=== PATIENT | male | born 1950 | race Caucasian/White ===

== ENCOUNTER → 2017-01-28 | Outpatient (CLI) | payer MEDICARE ==
--- NOTE | 2017-01-28 16:25 | RAD ---
EXAM: Left lower extremity venous Doppler. HISTORY: Left lower extremity pain/swelling. COMPARISON: None. FINDINGS: Grayscale and Doppler analysis of the left lower extremity deep venous system was performed with graded compression and augmentation. The common femoral, greater saphenous, superficial femoral, popliteal and calf veins were assessed. There is no evidence of deep venous thrombosis. Subcutaneous edema is noted. IMPRESSION: 1. No evidence of deep venous thrombosis.
== END | disposition home or self-care (01) ==
LOC: US 15:52
PROVIDERS: ATTEND Physician Assistant Medical
DX: D45 Polycythemia vera (principal)
CPT/HCPCS: 93971

== ENCOUNTER → 2017-10-17 | Outpatient (CLI) | payer MEDICARE ==
--- NOTE | 2017-10-17 09:56 | KCIC ---
EXAM: Cervical spine, 5 views; lumbar spine, 5 views. HISTORY: Paresthesia. COMPARISON: None. FINDINGS: Cervical spine: Frontal, lateral, bilateral oblique, odontoid and swimmer's views of the cervical spine are obtained. There is degenerative endplate remodeling with disc space narrowing and anterior osteophytosis predominantly at C5-C6 and C6-C7. There is facet and uncovertebral arthropathy at all levels. There is calcified plaque within the carotid bifurcations. No fracture is seen. Lumbar spine: Frontal, lateral, bilateral oblique and coned sacral views lumbar spine are obtained. There is grade 1 anterolisthesis of L3 on L4. There is slight retrolisthesis of L5 on S1, and to a lesser extent, L4 and L5. There is degenerative endplate remodeling at all levels. There is a mild anterior wedge compression fracture of T11. This is chronic in appearance. There is endplate remodeling with disc space narrowing and facet arthropathy predominantly at L5-S1. There is atherosclerotic plaque within a suspected ectatic abdominal aorta. IMPRESSION: 1. Multilevel degenerative change within the cervical spine, predominantly at C5-C6 and C6-C7. 2. Multilevel degenerative change within the lumbar spine, predominantly at L5-S1. 3. Grade 1 anterolisthesis of L3 on L4 and slight retrolisthesis of L5 on S1 and L4 and L5. 4. Mild chronic appearing T11 compression fracture. Electronically signed by: Shea Malhotra MD (10/17/2017 9:53 AM) [email or web address]
== END | disposition home or self-care (01) ==
LOC: KCIC 09:06
PROVIDERS: ATTEND Physician Assistant Medical
DX: M43.16 Spondylolisthesis, lumbar region (principal); M48.54XA Collapsed vertebra, not elsewhere classified, thoracic region, initial encounter for fracture; M47.892 Other spondylosis, cervical region; M47.896 Other spondylosis, lumbar region; R20.2 Paresthesia of skin
CPT/HCPCS: 72050; 72110

== ENCOUNTER → 2017-10-24 | Outpatient (CLI) | payer MEDICARE ==
--- NOTE | 2017-10-24 17:27 | KCIC ---
MRI of the cervical spine without contrast 10/24/2017 CLINICAL HISTORY: Bilateral arm numbness and hand paresthesias for one year. TECHNIQUE: Unenhanced T1-weighted, T2-weighted and inversion recovery sagittal and gradient echo and T2-weighted axial images of the cervical spine were obtained. FINDINGS: Minimal lateral curvature of the cervical spine is seen convex to the right. There is straightening of the normal cervical lordosis. Degenerative signal changes are seen involving all of the disks of the cervical spine. Loss of height of the C5-6 and C6-7 discs is noted. Degenerative signal changes are seen within the marrow surrounding these discs. No area of abnormal signal intensity is seen involving the cervical spinal cord. At the C2-3 disc space there is a mild generalized disc bulge. Degenerative changes are seen involving the uncovertebral and facet joints, left greater than right. These findings when combined do not result in significant central spinal canal stenosis. Mild left neural foraminal stenosis is seen. The right neural foramen is patent. At the C3-4 disc space there is a mild generalized disc bulge. Degenerative changes are seen involving the uncovertebral and facet joints, left greater than right. These findings do not result in significant central spinal canal stenosis. Mild left neural foraminal stenosis is seen. The right neural foramen is patent. At the C4-5 disc spaces there are mild generalized disc bulge. Degenerative changes are seen involving the uncovertebral and facet joints bilaterally. These findings when combined do not result in significant central spinal canal or neural foraminal stenosis. At the C5-6 disc space there is a moderate generalized disc bulge. Degenerative changes are seen involving the uncovertebral and facet joints, right greater than left. These findings efface the anterior CSF resulting in mild central spinal canal stenosis without evidence of cord impingement. Mild to moderate right greater than left neural foraminal stenosis is seen. At the C6-7 disc space there is a mild generalized disc bulge. Degenerative changes are seen involving the uncovertebral and facet joints, left greater than right. These findings when combined do not result in significant central spinal canal stenosis. Very mild left neural foraminal stenosis is seen. The right neural foramen is patent. At the C7-T1 disc space there is a moderate generalized disc bulge. Degenerative changes are seen involving the facet joints bilaterally. These findings do not result in significant central spinal canal stenosis. Mild bilateral neural foraminal stenosis is seen. IMPRESSION: Degenerative changes are seen throughout the cervical spine. These findings result in mild central spinal canal stenosis at C5-6 without evidence of cord impingement. Multilevel neural foraminal stenosis is seen as outlined above. Electronically signed by: Naeem Davenport MD (10/24/2017 5:23 PM) [email or web address]
--- NOTE | 2017-10-25 08:32 | KCIC ---
MRI of the lumbar spine without contrast 10/24/2017 CLINICAL HISTORY: Chronic low back pain for one year. TECHNIQUE: Unenhanced T1-weighted, T2-weighted and inversion recovery sagittal and T1-weighted and T2-weighted axial images of the lumbar spine were obtained. FINDINGS: Comparison is made to radiograph the lumbar spine dated 10/17/2017. Minimal S-shaped curvature of the thoracolumbar spine is seen. Degenerative signal changes are seen involving all of the disks of the lumbar spine. Very mild anterolisthesis of L3 in relation to L4 is noted. Degenerative signal changes are seen within the marrow surrounding all the disks of the lumbar spine. Loss of height of the L5-S1 disc is seen. The conus medullaris is normal in position and signal characteristics. Rounded high signal intensity lesions are seen involving both kidneys which measure 7 mm to 1.3 cm in size and T2-weighted images. These likely represent simple cysts. At the T12-L1 disc space there is a mild generalized disc bulge. Superimposed on this disc bulge is a right paracentral focal disc protrusion. This measures 3 mm in AP diameter. Degenerative changes are seen involving the facet joints bilaterally. These findings do not result in significant central spinal canal or neural foraminal stenosis. At the L1-2 disc space there is a mild to moderate generalized disc bulge. This is eccentric to the left. Degenerative changes are seen involving the facet joints bilaterally. There is mild to moderate ligamentum flavum hypertrophy bilaterally. There is prominence of the posterior epidural fat. These findings when combined result in mild to moderate left greater than right central spinal canal stenosis. No neural foraminal stenosis is seen. At the L2-3 disc space there is a mild to moderate generalized disc bulge. This is eccentric to the left. Degenerative changes are seen involving the facet joints bilaterally. There is mild ligamentum flavum hypertrophy bilaterally. There is prominence of the posterior epidural fat. These findings when combined result in mild to moderate central spinal canal stenosis. Mild left neural foraminal stenosis is seen. The right neural foramen is patent. At the L3-4 disc space there is a moderate to large generalized disc bulge. Degenerative changes are seen involving the facet joints bilaterally. There is moderate ligamentum flavum hypertrophy bilaterally. These findings when combined result in severe central spinal canal stenosis. Mild to moderate bilateral neural foraminal stenosis is seen. At the L4-5 disc space there is a moderate generalized disc bulge. Degenerative changes are seen involving the facet joints bilaterally. There is mild to moderate ligamentum flavum hypertrophy bilaterally. There is prominence of the posterior epidural fat. These findings when combined result in severe central spinal canal stenosis. No neural foraminal stenosis is seen. At the L5-S1 disc space, the patient is post left hemilaminotomy. There is a mild to moderate generalized disc bulge. This is eccentric to the left. Degenerative changes are seen involving the facet joints bilaterally. These findings when combined do not result in significant central spinal canal stenosis. Mild to moderate left neural foraminal stenosis is seen. The right neural foramen is patent. IMPRESSION: 1. Post left hemilaminotomy at L5-S1. 2. The changes of degenerative disc disease are seen involving the lower thoracic and throughout the lumbar spine. These findings result in mild to moderate left greater than right central spinal canal stenosis at L1-2, mild to moderate central spinal canal stenosis at L2-3 and severe central spinal canal stenosis at L3-4 and L4-5. Multilevel neural foraminal stenosis of varying severity is seen as outlined above. Electronically signed by: Naeem Davenport MD (10/25/2017 8:28 AM) [email or web address]
== END | disposition home or self-care (01) ==
LOC: KCIC MRI 15:52
PROVIDERS: ATTEND Physician Assistant Medical
DX: M48.02 Spinal stenosis, cervical region (principal); M51.36 Other intervertebral disc degeneration, lumbar region; M48.061 Spinal stenosis, lumbar region without neurogenic claudication; R20.2 Paresthesia of skin
CPT/HCPCS: 72141; 72148

== ENCOUNTER → 2018-01-24 | Outpatient (CLI) | payer MEDICARE ==
[~2018-01-24] MED LIST: IOHEXOL 180 MG/ML 10 ML VIAL.; methylPREDNISolone ACETATE 40 MG/ML VIAL.; methylPREDNISolone ACETATE 80 MG/ML VIAL.
== END | disposition home or self-care (01) ==
LOC: PNCL 08:39
DX: M51.16 Intervertebral disc disorders with radiculopathy, lumbar region (principal); M96.1 Postlaminectomy syndrome, not elsewhere classified; M48.00 Spinal stenosis, site unspecified; M54.5 Low back pain; I10 Essential (primary) hypertension; I25.10 Atherosclerotic heart disease of native coronary artery without angina pectoris; J44.9 Chronic obstructive pulmonary disease, unspecified; F17.210 Nicotine dependence, cigarettes, uncomplicated; Z79.899 Other long term (current) drug therapy; Z98.890 Other specified postprocedural states
CPT/HCPCS: 62323; J1030; J1040; Q9965

== ENCOUNTER → 2018-02-14 | Outpatient (CLI) | payer MEDICARE | LOC: PNCL 07:38 | DX: M51.16 Intervertebral disc disorders with radiculopathy, lumbar region (principal); M48.061 Spinal stenosis, lumbar region without neurogenic claudication; M96.1 Postlaminectomy syndrome, not elsewhere classified | CPT/HCPCS: 62323; J1030; J1040; Q9965 ==

== ENCOUNTER → 2018-02-28 | Outpatient (CLI) | payer MEDICARE | LOC: PNCL 07:34 | DX: M51.16 Intervertebral disc disorders with radiculopathy, lumbar region (principal) | CPT/HCPCS: 62323 ==

== ENCOUNTER → 2018-05-02 | Outpatient (CLI) | payer MEDICARE ==
[~2018-05-02] MED LIST changes: -IOHEXOL 180 MG/ML 10 ML VIAL.; +REGADENOSON 0.4 MG/5 ML DISP.SYRIN. IV; -methylPREDNISolone ACETATE 40 MG/ML VIAL.; -methylPREDNISolone ACETATE 80 MG/ML VIAL.
[2018-05-02] MEDS: REGADENOSON 0.4 MG/5 ML DISP.SYRIN. IV (09:05)
== END | disposition home or self-care (01) ==
LOC: NM 07:24
DX: R06.09 Other forms of dyspnea (principal); R06.02 Shortness of breath; J44.9 Chronic obstructive pulmonary disease, unspecified; Z87.891 Personal history of nicotine dependence
CPT/HCPCS: 78452; 93017; 96374; 96375; 96376; A9500; J2785

== ENCOUNTER → 2019-07-26 | Outpatient (CLI) | payer MEDICARE ==
[~2019-07-26] MED LIST changes: +ATOR20TA58 PO; +FLUT1DIS3 IH; +HYDR500C16 PO; +LISI1TAB19 PO; +METO25TA4 PO; -REGADENOSON 0.4 MG/5 ML DISP.SYRIN. IV
--- NOTE | 2019-07-26 16:23 | KCIC ---
Examination: Ultrasound bilateral lower arterial duplex HISTORY: History of claudication, hypertension COMPARISON: None available TECHNIQUE: Grayscale, color Doppler 2-D, spectral waveform analysis of the bilateral lower extremity arterial system were performed FINDINGS: The following are the velocities in the right lower extremity: Common femoral artery 92 cm/s, triphasic Deep femoral artery 88 cm/s Proximal SFA 99 cm/s, triphasic Mid SFA 101 cm/s, triphasic Distal SFA 92 cm/s, triphasic Popliteal artery 88 cm/s, biphasic SHIPPER 93 cm/s, biphasic Peroneal artery 34 cm/s, biphasic Anterior tibialis artery 44 cm/s, biphasic Dorsalis pedis artery 55 cm/s, biphasic. The following are the velocities in the left lower extremity: Common femoral artery 97 cm/s, triphasic. Deep femoral artery 58 cm/s. Proximal SFA 112 cm/s, triphasic. Mid SFA 97 cm/s, triphasic. Distal SFA 80 cm/s, triphasic. Popliteal artery 72 cm/s, biphasic. SHIPPER 73 cm/s, triphasic. Peroneal artery 33 cm/s, biphasic. Anterior tibialis artery 43 cm/s, biphasic Dorsalis pedis artery 39 cm/s, biphasic Soft tissue edema identified in the bilateral calf region. IMPRESSION: No evidence of hemodynamically significant stenosis. Electronically signed by: Ger Borja MD (07/26/2019 4:20 PM) [place] [id number]
== END | disposition home or self-care (01) ==
LOC: KCIC US 08:36
PROVIDERS: ATTEND Physician Assistant Medical
DX: D45 Polycythemia vera (principal); I73.9 Peripheral vascular disease, unspecified; I10 Essential (primary) hypertension; F17.200 Nicotine dependence, unspecified, uncomplicated
CPT/HCPCS: 93925

== ENCOUNTER 2019-12-05 06:55 | Day surgery (SDC) | payer MEDICARE ==
[~2019-12-05] VITALS: Ht 180.3 cm; Wt 122.5 kg
[~2019-12-05 06:55] MED LIST changes: +ASPI325T8 PO; +CYAN-25 INJ; +CYAN500T52 PO; +LISI10TA2 PO; +MAGN400T30 PO; +POTASSIUM; +TORS20TA2 PO
[2019-12-05] MEDS ORDERED: MORPHINE SULFATE 2 MG/ML VIAL. IV PRN (07:00)
[2019-12-05] MEDS ORDERED: ONDANSETRON PF 4 MG/2 ML VIAL. IV PRN (07:00)
[2019-12-05] MEDS ORDERED: HYDROmorphone 2 MG/ML VIAL IV PRN (07:00)
[2019-12-05] MEDS ORDERED: PROCHLORPERAZINE 10 MG/2 ML VIAL. IV PRN (07:00)
[2019-12-05] MEDS ORDERED: IV RINGERS,LACTATED 1000ML 1,000 ML IV SCH (07:00)
[2019-12-05] MEDS ORDERED: fentaNYL PF VIAL 100 MCG/2 ML VIAL IV PRN ×2 (07:00)
[2019-12-05] MEDS ORDERED: LIDOCAINE 2% PF 5 ML VIAL. ONE ×2 (08:09→09:06)
[2019-12-05] MEDS ORDERED: PROPOFOL 0 ML IV ONE (08:09)
[2019-12-05] MEDS ORDERED: LIDOCAINE 1% PF 30 ML VIAL. ONE (08:30)
[2019-12-05] MEDS ORDERED: DEXAMETHASONE SOD PHOS 4 MG/ML VIAL ONE (08:31)
[2019-12-05] MEDS ORDERED: LIDOCAINE 1% 20 ML VIAL. ONE (08:31)
[2019-12-05] MEDS ORDERED: ceFAZolin 2GM PREMIX 2 GM/50 ML BAG IV ONE (09:00)
[2019-12-05] MEDS ORDERED: 0.9 % SODIUM CHLORIDE 20 ML VIAL. IJ ONE ×2 (09:08)
--- NOTE | 2019-12-05 09:18 | PDOC4 ---
Operative Note Operative Note Date of procedure: 12/05/19 Surgeon: Rodolfo Mccarty Asst.: Loco Gillis Preoperative diagnosis: Left carpal tunnel syndrome Left index trigger finger Postoperative diagnosis: Same Procedure performed: Open left carpal tunnel release Injection of left index trigger finger Anesthesia: David block with sedation Findings: normal-appearing median nerve Blood loss: 2 mL Tourniquet time: 25 minutes Complications: none Reason for procedure: Patient is very pleasant individual who has had long- standing symptoms consistent with their electromyographically proven EMG rafael gnosis of carpal tunnel syndrome. We had tried and failed conservative therapies and had a discussion of the risks, benefits, alternatives to the above surgery and they wished to proceed. Description of procedure: Patient was greeted in the preoperative area by myself for the correct extremity was verified and marked. They were then taken back to the operative suite, antibiotics were started as they were brought back. Once in the operating room, patient was transferred gently supine to the operating room table. The hand board attached and was applied to the operating room table. He underwent successful induction of a [place] block followed by sedation. The left upper extremity was then prepped and draped in our usual sterile fashion and we conducted our standard preoperative timeout. I then injected dexamethasone and lidocaine into his second digit flexor tendon sheath. After this, I made an incision over the transverse carpal ligament from the distal wrist crease into the palm through a palmar crease. I incised skin with a scalpel and dissected subcutaneous tissue with a curved hemostat. I used bipolar cautery for hemostasis. Identified the palmar fascia and incised this in line with the skin incision and then placed myself retaining retractor. I identified the transverse carpal ligament and incised this with a scalpel. I then placed a Ragnell retractor in the distal portion of the incision, spread above and below small remaining portion of the transverse carpal ligament and transected this with a tenotomy scissors into the palm. After this, I repeated this maneuver and an ulnar directed fashion to release the distal antebrachial fascia at the proximal portion of the incision. I then palpated along the course of the median nerve with the tip of the tenotomies to help ensure that accomplished a complete release. The operative field was then irrigated out with sterile saline. After this, skin was closed with 3-0 nylon in a mattress fashion. A sterile bulky soft dressing was then applied to the patients hand and wrist. The tourniquet was let down, hemostasis had been achieved with electrocautery. Patient tolerated surgery well. No complications. At the conclusion, they were awakened and transferred gently supine to the recovery room cart and taken to the PACU in a stable and extubated condition. Postoperative plan is to discharge patient home. Frequent range of motion at digits and wrist was encouraged. The patient was instructed not to lift anything heavy. We will see him back in 2 weeks, sooner should a problem arise. RODOLFO MCCARTY II, MD Dec 05, 2019 09:18
--- NOTE | 2019-12-05 09:21 | DISCH ---
DISCHARGE INSTRUCTIONS Condition on Discharge Condition on Discharge: Stable Activity After Discharge Activity Instructions for Disc: Other, see below Other activity instructions: frequent range of motion at fingers Bathing Instructions: Shower-keep dressing dry Lifting Instructions after Dis: No heavy lifting Weight Bearing Status after Di: As tolerated Diet after Discharge Diet after Discharge: Regular Wound Incision Care Wound/Incision Care: Ice to area for comfort, Keep wound/cast CDI, Keep wound elevated, Change dressing Other wound/incision instructi: okay to change dressing after 2-3 days Contacting the [facility] after DC Call your doctor for: Concerns you may have Follow-Up Follow up with: Gaby in 2 wks Treatment/Equipment after DC Adaptive Equipment Issued: None RUDOLPH MCCARTY II, MD Dec 05, 2019 09:21
[2019-12-05 09:45] VITALS: BP 127/66
[2019-12-05] MEDS ORDERED: DOCU-109 PO (09:49)
[2019-12-05] MEDS ORDERED: ONDA8TAB9 SL (09:49)
[2019-12-05] MEDS ORDERED: HYDR-3164 PO (09:50)
[2019-12-05] MEDS ORDERED: HYDROcodone/APAP 5/325MG 1 TAB TABLET PO ONE (10:00)
== END 2019-12-05 10:40 | disposition home or self-care (01) ==
LOC: SURG 06:55
PROVIDERS: ATTEND Orthopaedic Surgery Sports Medicine
DX: G56.02 Carpal tunnel syndrome, left upper limb (principal); M65.322 Trigger finger, left index finger; I10 Essential (primary) hypertension; E78.00 Pure hypercholesterolemia, unspecified; J44.9 Chronic obstructive pulmonary disease, unspecified; Z95.1 Presence of aortocoronary bypass graft; Z79.82 Long term (current) use of aspirin; Z87.891 Personal history of nicotine dependence; Z85.46 Personal history of malignant neoplasm of prostate
CPT/HCPCS: 20550; 64721; J0696; J1100; J2001; J2704

== ENCOUNTER → 2020-05-21 | Outpatient (CLI) | payer MEDICARE ==
[~2020-05-21] MED LIST changes: +DOCU-109 PO; +HYDR-3164 PO; +ONDA8TAB9 SL
--- NOTE | 2020-05-21 16:31 | KCIC ---
CT LOW DOSE LUNG SCREENING INDICATION: Reason: SMOKER X 55 YEARS Baseline lung screening. Asymptomatic patient. COMPARISON STUDY: None. TECHNIQUE: Unenhanced axial images were obtained through the lungs and upper abdomen using low dose technique. Coronal and sagittal multiplanar reformatted images were also obtained. PQRS compliance statement: One or more of the following individualized dose reduction techniques were utilized for this examination: 1. Automated exposure control 2. Adjustment of the mA and/or kV according to patient size 3. Use of iterative reconstruction technique FINDINGS: Lung Nodules: There are a couple of tiny solid pulmonary nodules with uniforms sales representative nodules as follows: 4 mm left lower lobe nodule (series 6 image 263) and 3 mm right lower lobe nodule (image 205). Lungs and Airways: No pulmonary mass or consolidation. Paraseptal emphysema. Normal central airways. Pleura: Normal pleural spaces. Heart and Mediastinum: The visualized portions of the thyroid gland are normal in size and attenuation. No axillary or supraclavicular lymphadenopathy. No mediastinal, hilar or retrocrural lymphadenopathy. Normal cardiac size. Mild pericardial fluid. Coronary artery atherosclerotic disease and stents. Atherosclerosis of the thoracic aorta. Abdomen: The visualized abdominal organs demonstrate no abnormality. Bones and Soft Tissues: Degenerative changes of the spine. IMPRESSION: There are a few small pulmonary nodules. Lung-RADS Category: 2 Management Recommendation: Follow up low-dose chest CT in one year. Electronically signed by: Edgar Gordon MD (05/21/2020 4:28 PM) [id number]
== END | disposition home or self-care (01) ==
LOC: KCIC CT 13:00
PROVIDERS: ATTEND Physician Assistant Medical
DX: Z12.2 Encounter for screening for malignant neoplasm of respiratory organs (principal); R91.8 Other nonspecific abnormal finding of lung field; F17.210 Nicotine dependence, cigarettes, uncomplicated; I70.0 Atherosclerosis of aorta; Z71.6 Tobacco abuse counseling
CPT/HCPCS: G0297

== ENCOUNTER → 2020-05-29 | Outpatient (CLI) | payer MEDICARE ==
[~2020-05-29] MED LIST changes: -LISI1TAB19 PO; +LISI1TAB37 PO
== END | disposition home or self-care (01) ==
LOC: LAB 13:59
PROVIDERS: ATTEND Orthopaedic Surgery Sports Medicine
DX: Z11.59 Encounter for screening for other viral diseases (principal)
CPT/HCPCS: U0003-CS

== ENCOUNTER 2020-06-02 08:25 | Day surgery (SDC) | payer MEDICARE ==
[~2020-06-02] VITALS: Ht 180.3 cm; Wt 96.6 kg
[~2020-06-02 08:25] MED LIST changes: +HYDROmorphone 2 MG/ML VIAL IV PRN; +IV RINGERS,LACTATED 1000ML 1,000 ML IV SCH; +LIDOCAINE 1% PF 2 ML VIAL. ID PRN; +LISI1TAB19 PO; -LISI1TAB37 PO; +MORPHINE SULFATE 2 MG/ML VIAL. IV PRN; +ONDANSETRON PF 4 MG/2 ML VIAL. IV PRN; +PROCHLORPERAZINE 10 MG/2 ML VIAL. IV PRN; +fentaNYL PF VIAL 100 MCG/2 ML VIAL IV PRN
[2020-06-02] MEDS ORDERED: LIDOCAINE 1% PF 30 ML VIAL. ONE (08:54)
[2020-06-02] MEDS ORDERED: ceFAZolin 2GM PREMIX 2 GM/50 ML BAG IV ONE (09:00)
[2020-06-02] MEDS ORDERED: LIDOCAINE 2% PF 5 ML VIAL. ONE (09:02)
[2020-06-02] MEDS ORDERED: KETOROLAC 30 MG/ML VIAL. ONE (09:02)
[2020-06-02] MEDS ORDERED: PROPOFOL 10 MG/ML (20ML) VIAL. IV ONE (09:03)
[2020-06-02] MEDS ORDERED: MIDAZOLAM HCL/PF 2 MG/2 ML VIAL. ONE (09:03)
[2020-06-02] MEDS ORDERED: LIDOCAINE 1% Multi-Dose 20 ML VIAL. ONE (09:40)
[2020-06-02] MEDS ORDERED: BUPIVACAINE MPF 0.5% 30 ML VIAL. ONE (09:40)
--- NOTE | 2020-06-02 10:33 | DISCH ---
DISCHARGE INSTRUCTIONS Condition on Discharge Condition on Discharge: Stable Activity After Discharge Activity Instructions for Disc: Other, see below Other activity instructions: wiggle fingers Bathing Instructions: Shower-keep dressing dry Lifting Instructions after Dis: No heavy lifting Weight Bearing Status after Di: As tolerated Diet after Discharge Diet after Discharge: Regular Wound Incision Care Wound/Incision Care: Ice to area for comfort, Keep wound/cast CDI, Keep wound elevated, Change dressing Contacting the DR. after DC Call your doctor for: Concerns you may have Follow-Up Follow up with: Gaby in 2 wks Treatment/Equipment after DC Adaptive Equipment Issued: None RUDOLPH MCCARTY II, MD Jun 02, 2020 10:33
--- NOTE | 2020-06-02 11:07 | PDOC4 ---
Operative Note Operative Note Date of procedure: 06/02/2020 Surgeon: Rodolfo Mccarty Supervisor Microwave: Loco Gillis Preoperative diagnosis: Right carpal tunnel syndrome Postoperative diagnosis: Same Procedure performed: Open right carpal tunnel release Anesthesia: Mcgrew block with sedation Findings: Normal appearing median nerve Complications: None Tourniquet time: 25 minutes Blood loss: 2 mL Reason for procedure: Patient is a very pleasant 70-year-old gentleman who had presented to my clinic initially with bilateral carpal tunnel syndrome. Clinical and radiographic examination as well as EMG were consistent with the above diagnosis. He had recovered well from his left carpal tunnel release and wished to proceed with the right side. He had tried and failed conservative therapies and I felt that it was reasonable proceeding. Description of procedure: Patient was greeted in the preoperative area by myself or the correction was verified and marked. Taken to the operative suite antibiotics started as he was brought back. Once in the operating room, he was transferred gently supine to the operating room table and secured to the bed with all pressure points padded and had successful placement of a David block. Our hand board was secured to the operating table. We then proceeded prep and drape right upper extremity in her usual sterile fashion and conducted our standard preoperative timeout. I then made an incision from his distal wrist crease into his palm through a palmar crease and dissected subcutaneous tissue with a hemostat. Bipolar cautery was used for hemostasis. I placed my self- retaining retractor. The palmar fascia was incised in line with the skin incision and identified the transverse carpal ligament and releases sharply with my scalpel. I then used a Ragnell proximally and spread above and below the distal antebrachial fascia releases in an ulnar directed fashion with my tenotomy scissors. After this, I repeated this maneuver into his palm to release a small remaining portion of his transverse carpal ligament. I then palpated along the course of the nerve with the tip of the tenotomy's to help ensure I had accomplished a complete release and I was confident I had. We then thoroughly irrigated the operative field. Skin was then closed with 3-0 nylon in a mattress fashion. He was then placed into a soft sterile bulky dressing. At the conclusion, he was awakened from his sedation and transferred spine to the recovery room cart and taken to PACU in stable and extubated condition. Postoperative plan is to discharge him home, active range of motion and elevation were encouraged. I will see him back in 2 weeks, sooner should a problem arise. RODOLFO MCCARTY II, MD Jun 02, 2020 11:07
[2020-06-02] MEDS ORDERED: HYDROcodone/APAP 5/325MG 1 TAB TABLET ONE (11:16)
[2020-06-02] MEDS ORDERED: HYDROcodone/APAP 5/325MG 1 TAB TABLET PO ONE (11:30)
[2020-06-02 11:45] VITALS: BP 115/65
== END 2020-06-02 12:02 | disposition home or self-care (01) ==
LOC: SURG 08:25 → MERGE 10:45 → SURG 12:02
PROVIDERS: ATTEND Orthopaedic Surgery Sports Medicine
DX: G56.01 Carpal tunnel syndrome, right upper limb (principal); J44.9 Chronic obstructive pulmonary disease, unspecified; Z87.891 Personal history of nicotine dependence; Z79.899 Other long term (current) drug therapy; Z98.890 Other specified postprocedural states
CPT/HCPCS: 64721; J0690; J1885; J2250; J2704; J3490